=== PATIENT | male | born 1930 | race Caucasian/White ===

== ENCOUNTER 2017-07-03 12:36 | Inpatient (IN) ==
[2017-07-03] MEDS ORDERED: LORazepam 2 MG/1 ML VIAL ONE ×3 (12:49→20:22)
[2017-07-03] MEDS ORDERED: LORazepam 2 MG/1 ML VIAL IV STA ×2 (12:52→17:05)
[2017-07-03] MEDS ORDERED: LABETALOL 20 MG/4 ML SYRINGE IV STA (13:08)
[2017-07-03 13:09] LABS: Basophils % 0.3 % (0.0-0.8); Eosinophils % 0.2 % (0.00-10.9); Hematocrit 46.6 VOL% (42.0-52.0); Immature Granulocytes % 0.3 %; Immature Granulocytes Absolute 0.04 #; Lymphocytes # 2.7 10*3/uL (1.4-4.0); Lymphocytes % 21.2 % (21.2-54.2); Mean Corpuscular HGB Conc 34.3 GM/DL (32-36); Mean Corpuscular Hemoglobin 30 PG (27-34); Mean Corpuscular Volume 86.8 FL (87-102); Mean Platelet Volume 10.8 FL (9.6-12.0); Monocytes # 0.6 10*3/uL (0.11-0.8); Monocytes % 4.7 % (1.7-12.7); Neutrophils # 9.2 10*3/uL (1.4-7.4); Neutrophils % 73.3 % (38.7-73.9); Platelet Count 227 T/CUMM (130-400); Red Blood Count 5.37 MC/CUMM (3.8-5.5); Red Cell Distribution Width 13.5 % (9.3-17.3); White Blood Count 12.5 T/CUMM (4-12)
[2017-07-03 13:16] LABS: INR 1.1; PT Patient Result 11.8 SECS
[2017-07-03 13:36] LABS: ABG Base Excess 1.7 MMOL/L (-2.5-2.5); ABG HCO3 25.8 MMOL/L (20-26); ABG Oxygen Saturation 96.5 % (95-100); ABG PCO2 39.1 MM HG (35-48); ABG PH 7.438 (7.35-7.45); Allen Test Positive
[2017-07-03 13:40] LABS: Albumin 4.1 G/DL (3.4-5.0); Bilirubin,Total 1.4 MG/DL (0.2-1.0); Calcium 9.3 MG/DL (8.5-10.1); Magnesium 2.1 MG/DL (1.8-2.4); Osmolality,Calculated 275.8 MOS/KG (273-304); Potassium 3.5 MMOL/L (3.5-5.1); Thyroid Stimulating Hormone 3.08 uIU/ml (0.358-3.74); Total Protein 7.2 G/DL (6.4-8.3); Troponin I Only 0.028 NG/ML (0.00-0.045)
[2017-07-03] MEDS ORDERED: LABETALOL 20 MG/4 ML SYRINGE IV ONE (14:05)
[2017-07-03 14:13] LABS: Sedimentation Rate-Westergren 10 MM/HR (0-20)
[2017-07-03 14:30] LABS: INR 1.1; PT Patient Result 11.6 SECS
[2017-07-03] MEDS ORDERED: PIPERACILLIN/TAZOBACTAM 3,375 MG VIAL IV ONE (15:17)
[2017-07-03] MEDS ORDERED: SODIUM CHLORIDE 0.9% 100 ML IV ONE (15:18)
[2017-07-03] MEDS: PIPERACILLIN/TAZOBACTAM 3,375 MG in SODIUM CHLORIDE 0.9% 100 ML IV SCH ×2 (15:30→22:53)
[2017-07-03 16:29] LABS: Apearance,Urine CLOUDY (Clear); Bilirubin,Urine Negative (Negative); Blood, Urine Small mg/dL (Negative); Glucose,Urine (UA) Negative (Negative); Ketones,Urine Negative (Negative); Mucus,Urine Occasional /LPF (Occasional); Nitrite,Urine Negative (Negative); Protein,Urine 100 MG/DL; RBC,Urine 19 /HPF (0-4); Urine Color Yellow (Yellow); Urine Specific Gravity 1.015 (1.001-1.035); Urine Urobilinogen < 2.0 EU/DL (0.2-1.0); WBC,Urine 3 /HPF (0-6)
[2017-07-03] MEDS ORDERED: cefTRIAXone 1,000 MG in SYRINGE 1 EACH IV SCH (17:00)
[2017-07-03] MEDS ORDERED: ALBUTEROL 2.5 MG/3 ML NEB RESP TX SCH (17:00)
[2017-07-03] MEDS ORDERED: hydrALAZINE 20 MG/1 ML VIAL ONE (18:11)
[2017-07-03] MEDS: hydrALAZINE 20 MG/1 ML VIAL IV PRN (18:20)
[2017-07-03] MEDS: ALBUTEROL 2.5 MG/3 ML NEB RESP TX SCH (19:07)
[2017-07-03] MEDS: DEXT 5% NACL 0.45% KCL 20 MEQ 20 MEQ/1,000 ML BAG IV SCH (21:37)
[2017-07-04] MEDS ORDERED: LORazepam 2 MG/1 ML VIAL IV ONE ×2 (01:34→09:54)
[2017-07-04] MEDS ORDERED: LORazepam 2 MG/1 ML VIAL ONE (01:51)
[2017-07-04] MEDS: ALBUTEROL 2.5 MG/3 ML NEB RESP TX SCH ×4 (01:52→20:25)
[2017-07-04 04:55] LABS: Basophils % 0.3 % (0.0-0.8); Eosinophils # 0.1 10*3/uL (0.0-0.87); Eosinophils % 0.5 % (0.00-10.9); Hematocrit 44.2 VOL% (42.0-52.0); Hemoglobin 15.4 GM/DL (14.0-18.0); Immature Granulocytes % 0.4 %; Immature Granulocytes Absolute 0.05 #; Lymphocytes # 1.8 10*3/uL (1.4-4.0); Lymphocytes % 15.4 % (21.2-54.2); Mean Corpuscular HGB Conc 34.8 GM/DL (32-36); Mean Corpuscular Hemoglobin 30 PG (27-34); Mean Corpuscular Volume 85.7 FL (87-102); Monocytes # 0.9 10*3/uL (0.11-0.8); Monocytes % 7.7 % (1.7-12.7); Neutrophils % 75.7 % (38.7-73.9); Platelet Count 179 T/CUMM (130-400); Red Blood Count 5.16 MC/CUMM (3.8-5.5); Red Cell Distribution Width 13.5 % (9.3-17.3); White Blood Count 11.8 T/CUMM (4-12)
[2017-07-04 05:14] LABS: Lactic Acid 2.5 MMOL/L (0.4-2.0)
[2017-07-04 05:33] LABS: Albumin 3.6 G/DL (3.4-5.0); Bilirubin,Total 1.3 MG/DL (0.2-1.0); Calcium 8.9 MG/DL (8.5-10.1); Osmolality,Calculated 282.4 MOS/KG (273-304); Potassium 3.3 MMOL/L (3.5-5.1)
[2017-07-04 05:46] LABS: Risk Ratio 3.82; VLDL CHOLESTEROL 20.8 MG/DL
[2017-07-04] MEDS: DEXT 5% NACL 0.45% KCL 20 MEQ 20 MEQ/1,000 ML BAG IV SCH ×3 (05:48→22:59)
[2017-07-04 05:51] LABS: Vitamin B12 581 PG/ML (211-911)
[2017-07-04] MEDS: PIPERACILLIN/TAZOBACTAM 3,375 MG in SODIUM CHLORIDE 0.9% 100 ML IV SCH ×3 (06:02→22:19)
[2017-07-04] MEDS: hydrALAZINE 20 MG/1 ML VIAL IV PRN ×2 (11:37→20:06)
[2017-07-04] MEDS: HALOPERIDOL 5 MG/ML AMP IV PRN ×2 (16:05→23:45)
[2017-07-04] MEDS ORDERED: GLUCAGON 1 MG VIAL IM PRN (17:02)
[2017-07-04] MEDS ORDERED: DEXTROSE 50% 25 GM/50 ML VIAL IV PRN (17:02)
[2017-07-04] MEDS: INSULIN REGULAR 100 UNIT/ML SUBCUT SCH (18:49)
[2017-07-05] MEDS: ALBUTEROL 2.5 MG/3 ML NEB RESP TX SCH ×4 (01:30→18:50)
[2017-07-05] MEDS: INSULIN REGULAR 100 UNIT/ML SUBCUT SCH ×4 (02:28→18:47)
[2017-07-05 04:24] LABS: Magnesium 1.9 MG/DL (1.8-2.4); Prealbumin 19.8 MG/DL (20-40)
[2017-07-05] MEDS: PIPERACILLIN/TAZOBACTAM 3,375 MG in SODIUM CHLORIDE 0.9% 100 ML IV SCH ×3 (05:59→22:13)
[2017-07-05] MEDS: HALOPERIDOL 5 MG/ML AMP IV PRN ×2 (06:00→12:00)
[2017-07-05] MEDS: ASPIRIN CHEW 81 MG TABLET PO SCH (11:59)
[2017-07-05] MEDS: POTASSIUM CHLORIDE 20 MEQ/15 ML UDCUP PER TUBE PRN (12:02)
[2017-07-05] MEDS: hydrALAZINE 20 MG/1 ML VIAL IV PRN (12:37)
[2017-07-05] MEDS ORDERED: HALOPERIDOL 5 MG/ML AMP IM ONE (17:30)
[2017-07-05] MEDS ORDERED: LORazepam 2 MG/1 ML VIAL IM ONE (17:30)
[2017-07-05] MEDS: ATORVASTATIN 10 MG TABLET PO SCH (21:43)
[2017-07-05] MEDS: FOLIC ACID 1 MG TABLET PO SCH (21:43)
[2017-07-06] MEDS: ALBUTEROL 2.5 MG/3 ML NEB RESP TX SCH ×4 (01:00→19:01)
[2017-07-06] MEDS: INSULIN REGULAR 100 UNIT/ML SUBCUT SCH ×4 (02:32→18:32)
[2017-07-06] MEDS: HALOPERIDOL 5 MG/ML AMP IV PRN ×3 (05:55→17:13)
[2017-07-06] MEDS: PIPERACILLIN/TAZOBACTAM 3,375 MG in SODIUM CHLORIDE 0.9% 100 ML IV SCH ×3 (06:26→22:56)
[2017-07-06] MEDS: ASPIRIN CHEW 81 MG TABLET PO SCH (09:24)
[2017-07-06] MEDS ORDERED: BISACODYL 10 MG SUPP RECTAL PRN (09:40)
[2017-07-06] MEDS: amLODIPine 5 MG TABLET PO SCH (11:11)
[2017-07-06] MEDS: POLYETHYLENE GLYCOL POWDER 17 GM PACK PO SCH (11:11)
[2017-07-06] MEDS: hydrALAZINE 20 MG/1 ML VIAL IV PRN (16:16)
[2017-07-06] MEDS: ZIPRASIDONE 20 MG/1 ML VIAL IM PRN (18:30)
[2017-07-06] MEDS: QUEtiapine 25 MG TABLET PO PRN (21:22)
[2017-07-06] MEDS: ATORVASTATIN 10 MG TABLET PO SCH (21:22)
[2017-07-06] MEDS: FOLIC ACID 1 MG TABLET PO SCH (21:22)
[2017-07-07] MEDS: ALBUTEROL 2.5 MG/3 ML NEB RESP TX SCH ×4 (00:28→20:00)
[2017-07-07] MEDS: INSULIN REGULAR 100 UNIT/ML SUBCUT SCH ×5 (00:34→23:59)
[2017-07-07] MEDS: HALOPERIDOL 5 MG/ML AMP IV PRN ×3 (02:00→15:20)
[2017-07-07 04:52] LABS: Basophils % 0.3 % (0.0-0.8); Eosinophils # 0.3 10*3/uL (0.0-0.87); Eosinophils % 2.7 % (0.00-10.9); Hematocrit 46.6 VOL% (42.0-52.0); Hemoglobin 16.7 GM/DL (14.0-18.0); Immature Granulocytes % 0.5 %; Immature Granulocytes Absolute 0.06 #; Lymphocytes # 1.4 10*3/uL (1.4-4.0); Lymphocytes % 12.4 % (21.2-54.2); Mean Corpuscular HGB Conc 35.8 GM/DL (32-36); Mean Corpuscular Hemoglobin 30 PG (27-34); Mean Corpuscular Volume 84.1 FL (87-102); Monocytes % 8.9 % (1.7-12.7); Neutrophils # 8.6 10*3/uL (1.4-7.4); Neutrophils % 75.2 % (38.7-73.9); Platelet Count 180 T/CUMM (130-400); Red Blood Count 5.54 MC/CUMM (3.8-5.5); Red Cell Distribution Width 13.9 % (9.3-17.3); White Blood Count 11.5 T/CUMM (4-12)
[2017-07-07 05:27] LABS: Calcium 8.5 MG/DL (8.5-10.1); Magnesium 2.2 MG/DL (1.8-2.4); Osmolality,Calculated 286.1 MOS/KG (273-304); Potassium 3.4 MMOL/L (3.5-5.1)
[2017-07-07 06:00] LABS: Albumin 3.3 G/DL (3.4-5.0); Calcium 8.9 MG/DL (8.5-10.1); Osmolality,Calculated 293.6 MOS/KG (273-304); Potassium 3.5 MMOL/L (3.5-5.1)
[2017-07-07] MEDS: PIPERACILLIN/TAZOBACTAM 3,375 MG in SODIUM CHLORIDE 0.9% 100 ML IV SCH ×3 (06:23→23:02)
[2017-07-07] MEDS: POTASSIUM CHLORIDE 20 MEQ/15 ML UDCUP PER TUBE PRN ×2 (06:23→08:58)
[2017-07-07] MEDS: ASPIRIN CHEW 81 MG TABLET PO SCH (08:57)
[2017-07-07] MEDS: QUEtiapine 25 MG TABLET PO PRN ×2 (08:57→20:20)
[2017-07-07] MEDS: POLYETHYLENE GLYCOL POWDER 17 GM PACK PO SCH (08:57)
[2017-07-07] MEDS: amLODIPine 5 MG TABLET PO SCH (08:58)
[2017-07-07] MEDS ORDERED: ZINC OXIDE PASTE 113 GM TUBE TOP PRN (10:25)
[2017-07-07] MEDS: amLODIPine 10 MG TABLET PO SCH (11:18)
[2017-07-07] MEDS: ZIPRASIDONE 20 MG/1 ML VIAL IM PRN (15:37)
[2017-07-07] MEDS: hydrALAZINE 20 MG/1 ML VIAL IV PRN ×2 (17:15→22:15)
[2017-07-07] MEDS: ATORVASTATIN 10 MG TABLET PO SCH (20:20)
[2017-07-07] MEDS: FOLIC ACID 1 MG TABLET PO SCH (20:20)
[2017-07-08] MEDS: hydrALAZINE 20 MG/1 ML VIAL IV PRN (00:08)
[2017-07-08] MEDS: ALBUTEROL 2.5 MG/3 ML NEB RESP TX SCH ×4 (00:35→19:33)
[2017-07-08] MEDS: DILTIAZEM INJ 100 MG in SODIUM CHLORIDE 0.9% 100 ML IV SCH ×2 (02:13→14:43)
[2017-07-08] MEDS: INSULIN REGULAR 100 UNIT/ML SUBCUT SCH ×3 (06:08→19:07)
[2017-07-08] MEDS: PIPERACILLIN/TAZOBACTAM 3,375 MG in SODIUM CHLORIDE 0.9% 100 ML IV SCH ×3 (06:08→23:18)
[2017-07-08] MEDS: POTASSIUM CHLORIDE 20 MEQ/15 ML UDCUP PER TUBE PRN (10:08)
[2017-07-08] MEDS: ASPIRIN CHEW 81 MG TABLET PO SCH (10:09)
[2017-07-08] MEDS: POLYETHYLENE GLYCOL POWDER 17 GM PACK PO SCH (10:10)
[2017-07-08] MEDS: amLODIPine 10 MG TABLET PO SCH (10:10)
[2017-07-08] MEDS: HALOPERIDOL 5 MG/ML AMP IV PRN (14:40)
[2017-07-08] MEDS: FOLIC ACID 1 MG TABLET PO SCH (20:21)
[2017-07-08] MEDS: ATORVASTATIN 10 MG TABLET PO SCH (20:21)
[2017-07-08] MEDS: QUEtiapine 25 MG TABLET PO PRN (20:21)
[2017-07-08] MEDS: ZIPRASIDONE 20 MG/1 ML VIAL IM PRN (23:10)
[2017-07-09] MEDS: ALBUTEROL 2.5 MG/3 ML NEB RESP TX SCH ×4 (01:41→20:00)
[2017-07-09] MEDS: DILTIAZEM INJ 100 MG in SODIUM CHLORIDE 0.9% 100 ML IV SCH ×2 (03:20→17:12)
[2017-07-09] MEDS: INSULIN REGULAR 100 UNIT/ML SUBCUT SCH ×4 (06:04→19:11)
[2017-07-09] MEDS: PIPERACILLIN/TAZOBACTAM 3,375 MG in SODIUM CHLORIDE 0.9% 100 ML IV SCH ×3 (06:10→23:15)
[2017-07-09] MEDS: ASPIRIN CHEW 81 MG TABLET PO SCH (08:18)
[2017-07-09] MEDS: QUEtiapine 25 MG TABLET PO PRN (08:18)
[2017-07-09] MEDS: amLODIPine 10 MG TABLET PO SCH (08:18)
[2017-07-09] MEDS: POLYETHYLENE GLYCOL POWDER 17 GM PACK PO SCH (08:18)
[2017-07-09] MEDS: POTASSIUM CHLORIDE 20 MEQ/15 ML UDCUP PER TUBE PRN (08:19)
[2017-07-09] MEDS: ZIPRASIDONE 20 MG/1 ML VIAL IM PRN (11:17)
[2017-07-09] MEDS: ENOXAPARIN 40 MG/0.4 ML SYRINGE SUBCUT SCH (17:11)
[2017-07-09] MEDS: FOLIC ACID 1 MG TABLET PO SCH (22:07)
[2017-07-09] MEDS: CARVEDILOL 6.25 MG TABLET NG SCH (22:07)
[2017-07-09] MEDS: ATORVASTATIN 10 MG TABLET PO SCH (22:07)
[2017-07-10] MEDS: ALBUTEROL 2.5 MG/3 ML NEB RESP TX SCH ×4 (00:33→19:11)
[2017-07-10] MEDS: INSULIN REGULAR 100 UNIT/ML SUBCUT SCH ×4 (01:23→17:52)
[2017-07-10 05:32] LABS: Basophils # 0.1 10*3/uL (0.0-0.2); Basophils % 0.6 % (0.0-0.8); Eosinophils # 0.4 10*3/uL (0.0-0.87); Eosinophils % 2.8 % (0.00-10.9); Hematocrit 44.1 VOL% (42.0-52.0); Hemoglobin 14.9 GM/DL (14.0-18.0); Immature Granulocytes % 0.9 %; Immature Granulocytes Absolute 0.11 #; Lymphocytes # 1.4 10*3/uL (1.4-4.0); Lymphocytes % 11.1 % (21.2-54.2); Mean Corpuscular HGB Conc 33.8 GM/DL (32-36); Mean Corpuscular Hemoglobin 30 PG (27-34); Mean Corpuscular Volume 87.5 FL (87-102); Mean Platelet Volume 11.5 FL (9.6-12.0); Monocytes # 1.1 10*3/uL (0.11-0.8); Monocytes % 9.1 % (1.7-12.7); Neutrophils # 9.4 10*3/uL (1.4-7.4); Neutrophils % 75.5 % (38.7-73.9); Platelet Count 232 T/CUMM (130-400); Red Blood Count 5.04 MC/CUMM (3.8-5.5); Red Cell Distribution Width 14.4 % (9.3-17.3); White Blood Count 12.5 T/CUMM (4-12)
[2017-07-10 05:50] LABS: Calcium 9.1 MG/DL (8.5-10.1); Osmolality,Calculated 309.9 MOS/KG (273-304); Potassium 3.7 MMOL/L (3.5-5.1)
[2017-07-10] MEDS: PIPERACILLIN/TAZOBACTAM 3,375 MG in SODIUM CHLORIDE 0.9% 100 ML IV SCH ×3 (07:14→22:21)
[2017-07-10] MEDS: amLODIPine 10 MG TABLET PO SCH (09:46)
[2017-07-10] MEDS: MEMANTINE 5 MG TABLET PO SCH ×2 (09:46→22:01)
[2017-07-10] MEDS: QUEtiapine 25 MG TABLET PO SCH ×2 (09:47→22:02)
[2017-07-10] MEDS: DILTIAZEM INJ 100 MG in SODIUM CHLORIDE 0.9% 100 ML IV SCH (09:47)
[2017-07-10] MEDS: ASPIRIN CHEW 81 MG TABLET PO SCH (09:47)
[2017-07-10] MEDS: CARVEDILOL 6.25 MG TABLET NG SCH ×2 (09:47→22:02)
[2017-07-10] MEDS: POLYETHYLENE GLYCOL POWDER 17 GM PACK PO SCH (09:47)
[2017-07-10] MEDS: ENOXAPARIN 40 MG/0.4 ML SYRINGE SUBCUT SCH (16:13)
[2017-07-10] MEDS: cloNIDine 0.1 MG TABLET PO PRN (22:01)
[2017-07-10] MEDS: FOLIC ACID 1 MG TABLET PO SCH (22:01)
[2017-07-10] MEDS: ATORVASTATIN 10 MG TABLET PO SCH (22:02)
[2017-07-11] MEDS: ALBUTEROL 2.5 MG/3 ML NEB RESP TX SCH ×4 (00:14→20:21)
[2017-07-11] MEDS: DILTIAZEM INJ 100 MG in SODIUM CHLORIDE 0.9% 100 ML IV SCH (04:08)
[2017-07-11] MEDS: INSULIN REGULAR 100 UNIT/ML SUBCUT SCH ×4 (04:08→18:00)
[2017-07-11] MEDS: cloNIDine 0.1 MG TABLET PO PRN (05:10)
[2017-07-11 05:55] LABS: Calcium 8.8 MG/DL (8.5-10.1); Potassium 3.7 MMOL/L (3.5-5.1)
[2017-07-11] MEDS: PIPERACILLIN/TAZOBACTAM 3,375 MG in SODIUM CHLORIDE 0.9% 100 ML IV SCH ×3 (06:27→22:42)
[2017-07-11] MEDS: amLODIPine 10 MG TABLET PO SCH (09:50)
[2017-07-11] MEDS: POLYETHYLENE GLYCOL POWDER 17 GM PACK PO SCH (09:50)
[2017-07-11] MEDS: CARVEDILOL 6.25 MG TABLET NG SCH (09:51)
[2017-07-11] MEDS: MEMANTINE 5 MG TABLET PO SCH (09:51)
[2017-07-11] MEDS: QUEtiapine 25 MG TABLET PO SCH (09:51)
[2017-07-11] MEDS: ASPIRIN CHEW 81 MG TABLET PO SCH (09:52)
[2017-07-11] MEDS: ENOXAPARIN 40 MG/0.4 ML SYRINGE SUBCUT SCH (17:38)
[2017-07-11] MEDS ORDERED: ZIPRASIDONE 20 MG/1 ML VIAL IM ONE (22:30)
[2017-07-12] MEDS: INSULIN REGULAR 100 UNIT/ML SUBCUT SCH ×4 (00:15→17:33)
[2017-07-12] MEDS: hydrALAZINE 25 MG TABLET PO SCH ×3 (00:15→20:43)
[2017-07-12] MEDS: CARVEDILOL 12.5 MG TABLET PO SCH ×2 (00:15→08:35)
[2017-07-12] MEDS: MEMANTINE 5 MG TABLET PO SCH ×3 (00:16→20:43)
[2017-07-12] MEDS: FOLIC ACID 1 MG TABLET PO SCH ×2 (00:16→20:43)
[2017-07-12] MEDS: ATORVASTATIN 10 MG TABLET PO SCH ×2 (00:16→20:43)
[2017-07-12] MEDS: ALBUTEROL 2.5 MG/3 ML NEB RESP TX SCH ×4 (00:47→20:26)
[2017-07-12] MEDS: PIPERACILLIN/TAZOBACTAM 3,375 MG in SODIUM CHLORIDE 0.9% 100 ML IV SCH ×3 (06:34→23:20)
[2017-07-12] MEDS: DILTIAZEM INJ 100 MG in SODIUM CHLORIDE 0.9% 100 ML IV SCH (07:27)
[2017-07-12] MEDS: amLODIPine 10 MG TABLET PO SCH (08:34)
[2017-07-12] MEDS: ASPIRIN CHEW 81 MG TABLET PO SCH (08:35)
[2017-07-12] MEDS: POLYETHYLENE GLYCOL POWDER 17 GM PACK PO SCH (08:35)
[2017-07-12] MEDS: ENOXAPARIN 40 MG/0.4 ML SYRINGE SUBCUT SCH (17:33)
[2017-07-12] MEDS: CARVEDILOL 25 MG TABLET PO SCH (17:33)
[2017-07-13] MEDS: ZIPRASIDONE 20 MG/1 ML VIAL IM PRN ×2 (00:59→22:45)
[2017-07-13] MEDS: INSULIN REGULAR 100 UNIT/ML SUBCUT SCH ×4 (01:06→17:48)
[2017-07-13] MEDS: ALBUTEROL 2.5 MG/3 ML NEB RESP TX SCH ×4 (01:43→21:20)
[2017-07-13] MEDS: DILTIAZEM INJ 100 MG in SODIUM CHLORIDE 0.9% 100 ML IV SCH (06:24)
[2017-07-13] MEDS: PIPERACILLIN/TAZOBACTAM 3,375 MG in SODIUM CHLORIDE 0.9% 100 ML IV SCH ×3 (06:49→23:46)
[2017-07-13] MEDS: POLYETHYLENE GLYCOL POWDER 17 GM PACK PO SCH (10:10)
[2017-07-13] MEDS: amLODIPine 10 MG TABLET PO SCH (10:10)
[2017-07-13] MEDS: hydrALAZINE 25 MG TABLET PO SCH ×2 (10:10→21:27)
[2017-07-13] MEDS: CARVEDILOL 25 MG TABLET PO SCH ×2 (10:10→16:48)
[2017-07-13] MEDS: MEMANTINE 5 MG TABLET PO SCH ×2 (10:10→21:27)
[2017-07-13] MEDS: ASPIRIN CHEW 81 MG TABLET PO SCH (10:11)
[2017-07-13] MEDS: ENOXAPARIN 40 MG/0.4 ML SYRINGE SUBCUT SCH (16:52)
[2017-07-13] MEDS ORDERED: cloNIDine 0.3 MG/24 HR PATCH TRANSDERM SCH (17:00)
[2017-07-13] MEDS ORDERED: DEXTROSE 5% NACL 0.45% 1,000 ML IV SCH (17:00)
[2017-07-13] MEDS: FOLIC ACID 1 MG TABLET PO SCH (21:27)
[2017-07-13] MEDS: ATORVASTATIN 10 MG TABLET PO SCH (21:27)
[2017-07-14] MEDS: INSULIN REGULAR 100 UNIT/ML SUBCUT SCH ×4 (01:22→19:18)
[2017-07-14] MEDS: ALBUTEROL 2.5 MG/3 ML NEB RESP TX SCH ×4 (01:42→20:00)
[2017-07-14 06:30] LABS: Calcium 8.7 MG/DL (8.5-10.1); Magnesium 2.7 MG/DL (1.8-2.4); Osmolality,Calculated 326.7 MOS/KG (273-304); Potassium 3.7 MMOL/L (3.5-5.1); Prealbumin 12.9 MG/DL (20-40)
[2017-07-14] MEDS: PIPERACILLIN/TAZOBACTAM 3,375 MG in SODIUM CHLORIDE 0.9% 100 ML IV SCH ×3 (06:45→23:35)
[2017-07-14] MEDS: DILTIAZEM INJ 100 MG in SODIUM CHLORIDE 0.9% 100 ML IV SCH (06:46)
[2017-07-14] MEDS: ZIPRASIDONE 20 MG/1 ML VIAL IM PRN ×2 (08:17→21:23)
[2017-07-14] MEDS: hydrALAZINE 25 MG TABLET PO SCH ×2 (12:16→21:24)
[2017-07-14] MEDS: CARVEDILOL 25 MG TABLET PO SCH ×2 (12:16→18:38)
[2017-07-14] MEDS: ASPIRIN CHEW 81 MG TABLET PO SCH (12:16)
[2017-07-14] MEDS: MEMANTINE 5 MG TABLET PO SCH ×2 (12:17→21:24)
[2017-07-14] MEDS: POLYETHYLENE GLYCOL POWDER 17 GM PACK PO SCH (12:17)
[2017-07-14] MEDS: amLODIPine 10 MG TABLET PO SCH (12:17)
[2017-07-14] MEDS: DEXTROSE 5% KCL 20 MEQ 20 MEQ/1,000 ML BAG IV SCH (14:09)
[2017-07-14] MEDS: ENOXAPARIN 40 MG/0.4 ML SYRINGE SUBCUT SCH (18:37)
[2017-07-14] MEDS: FOLIC ACID 1 MG TABLET PO SCH (21:24)
[2017-07-14] MEDS: ATORVASTATIN 10 MG TABLET PO SCH (21:24)
[2017-07-15] MEDS: ALBUTEROL 2.5 MG/3 ML NEB RESP TX SCH ×4 (00:42→19:48)
[2017-07-15] MEDS: INSULIN REGULAR 100 UNIT/ML SUBCUT SCH ×4 (02:47→18:51)
[2017-07-15] MEDS: DILTIAZEM INJ 100 MG in SODIUM CHLORIDE 0.9% 100 ML IV SCH (02:48)
[2017-07-15 05:38] LABS: Red Blood Count 4.64 MC/CUMM (3.8-5.5); White Blood Count 13.2 T/CUMM (4-12)
[2017-07-15 05:39] LABS: Basophils # 0.1 10*3/uL (0.0-0.2); Basophils % 0.5 % (0.0-0.8); Eosinophils # 0.4 10*3/uL (0.0-0.87); Eosinophils % 3.3 % (0.00-10.9); Hematocrit 41.8 VOL% (42.0-52.0); Hemoglobin 13.6 GM/DL (14.0-18.0); Immature Granulocytes % 1.1 %; Immature Granulocytes Absolute 0.14 #; Lymphocytes # 2.1 10*3/uL (1.4-4.0); Lymphocytes % 16.1 % (21.2-54.2); Mean Corpuscular HGB Conc 32.5 GM/DL (32-36); Mean Corpuscular Hemoglobin 29 PG (27-34); Mean Corpuscular Volume 90.1 FL (87-102); Monocytes % 7.5 % (1.7-12.7); Neutrophils # 9.4 10*3/uL (1.4-7.4); Neutrophils % 71.5 % (38.7-73.9); Platelet Count 298 T/CUMM (130-400); Red Cell Distribution Width 13.5 % (9.3-17.3)
[2017-07-15] MEDS: DEXTROSE 5% KCL 20 MEQ 20 MEQ/1,000 ML BAG IV SCH ×3 (05:46→16:08)
[2017-07-15] MEDS: PIPERACILLIN/TAZOBACTAM 3,375 MG in SODIUM CHLORIDE 0.9% 100 ML IV SCH ×3 (07:27→23:47)
[2017-07-15] MEDS: ZIPRASIDONE 20 MG/1 ML VIAL IM PRN (11:31)
[2017-07-15] MEDS: ASPIRIN CHEW 81 MG TABLET PO SCH (12:16)
[2017-07-15] MEDS: CARVEDILOL 25 MG TABLET PO SCH ×2 (12:16→18:49)
[2017-07-15] MEDS: hydrALAZINE 25 MG TABLET PO SCH ×2 (12:16→23:00)
[2017-07-15] MEDS: amLODIPine 10 MG TABLET PO SCH (12:17)
[2017-07-15] MEDS: MEMANTINE 5 MG TABLET PO SCH ×2 (12:17→23:01)
[2017-07-15] MEDS: POLYETHYLENE GLYCOL POWDER 17 GM PACK PO SCH (12:17)
[2017-07-15] MEDS: ENOXAPARIN 40 MG/0.4 ML SYRINGE SUBCUT SCH (18:49)
[2017-07-15] MEDS: FOLIC ACID 1 MG TABLET PO SCH (23:00)
[2017-07-15] MEDS: ATORVASTATIN 10 MG TABLET PO SCH (23:00)
[2017-07-16] MEDS: INSULIN REGULAR 100 UNIT/ML SUBCUT SCH ×4 (01:28→18:22)
[2017-07-16] MEDS: DILTIAZEM INJ 100 MG in SODIUM CHLORIDE 0.9% 100 ML IV SCH (03:10)
[2017-07-16] MEDS: DEXTROSE 5% KCL 20 MEQ 20 MEQ/1,000 ML BAG IV SCH ×4 (03:50→21:32)
[2017-07-16] MEDS: PIPERACILLIN/TAZOBACTAM 3,375 MG in SODIUM CHLORIDE 0.9% 100 ML IV SCH (06:30)
[2017-07-16 08:22] LABS: Calcium 8.8 MG/DL (8.5-10.1); Osmolality,Calculated 322.7 MOS/KG (273-304); Potassium 3.9 MMOL/L (3.5-5.1)
[2017-07-16] MEDS: hydrALAZINE 25 MG TABLET PO SCH ×2 (09:00→21:47)
[2017-07-16] MEDS: MEMANTINE 5 MG TABLET PO SCH ×2 (09:00→21:47)
[2017-07-16] MEDS ORDERED: DEXTROSE 5% KCL 20 MEQ 20 MEQ/1,000 ML BAG IV SCH (09:00)
[2017-07-16] MEDS: CARVEDILOL 25 MG TABLET PO SCH ×2 (09:00→17:52)
[2017-07-16] MEDS: amLODIPine 10 MG TABLET PO SCH (09:00)
[2017-07-16] MEDS: POLYETHYLENE GLYCOL POWDER 17 GM PACK PO SCH (09:00)
[2017-07-16] MEDS: ALBUTEROL 2.5 MG/3 ML NEB RESP TX SCH ×4 (09:11→19:42)
[2017-07-16] MEDS: ZIPRASIDONE 20 MG/1 ML VIAL IM PRN ×2 (11:03→23:04)
[2017-07-16] MEDS ORDERED: TUBERCULIN SKIN TEST 0.1 ML SYRINGE INTRADERM ONE (14:59)
[2017-07-16] MEDS: FOLIC ACID 1 MG TABLET PO SCH (21:47)
[2017-07-16] MEDS: ATORVASTATIN 10 MG TABLET PO SCH (21:47)
[2017-07-17] MEDS: ALBUTEROL 2.5 MG/3 ML NEB RESP TX SCH ×4 (00:09→20:00)
[2017-07-17] MEDS: INSULIN REGULAR 100 UNIT/ML SUBCUT SCH ×4 (00:28→18:31)
[2017-07-17] MEDS: DILTIAZEM INJ 100 MG in SODIUM CHLORIDE 0.9% 100 ML IV SCH (02:29)
[2017-07-17] MEDS: DEXTROSE 5% KCL 20 MEQ 20 MEQ/1,000 ML BAG IV SCH ×3 (04:56→21:59)
[2017-07-17 06:09] LABS: Calcium 8.6 MG/DL (8.5-10.1); Calcium 8.9 MG/DL (8.5-10.1); Magnesium 2.6 MG/DL (1.8-2.4); Osmolality,Calculated 307.7 MOS/KG (273-304); Osmolality,Calculated 308.7 MOS/KG (273-304); Potassium 3.9 MMOL/L (3.5-5.1)
[2017-07-17] MEDS ORDERED: DEXTROSE 5% 500 ML IV ONE (07:30)
[2017-07-17] MEDS: amLODIPine 10 MG TABLET PO SCH (08:27)
[2017-07-17] MEDS: MEMANTINE 5 MG TABLET PO SCH ×2 (08:27→21:59)
[2017-07-17] MEDS: CARVEDILOL 25 MG TABLET PO SCH ×2 (08:27→17:15)
[2017-07-17] MEDS: POLYETHYLENE GLYCOL POWDER 17 GM PACK PO SCH (08:27)
[2017-07-17] MEDS: hydrALAZINE 25 MG TABLET PO SCH ×2 (08:27→21:59)
[2017-07-17] MEDS ORDERED: ceFAZolin 1,000 MG in SYRINGE 1 EACH IV ONE (12:21)
[2017-07-17] MEDS ORDERED: ceFAZolin 1,000 MG VIAL ONE (12:22)
[2017-07-17] MEDS: FOLIC ACID 1 MG TABLET PO SCH (21:59)
[2017-07-17] MEDS: ATORVASTATIN 10 MG TABLET PO SCH (21:59)
[2017-07-18] MEDS: ALBUTEROL 2.5 MG/3 ML NEB RESP TX SCH ×4 (00:15→20:40)
[2017-07-18] MEDS: INSULIN REGULAR 100 UNIT/ML SUBCUT SCH ×4 (00:55→18:05)
[2017-07-18] MEDS: DEXTROSE 5% KCL 20 MEQ 20 MEQ/1,000 ML BAG IV SCH ×2 (02:23→09:47)
[2017-07-18] MEDS: DILTIAZEM INJ 100 MG in SODIUM CHLORIDE 0.9% 100 ML IV SCH (02:24)
[2017-07-18 05:32] LABS: Basophils # 0.1 10*3/uL (0.0-0.2); Basophils % 0.4 % (0.0-0.8); Eosinophils # 0.4 10*3/uL (0.0-0.87); Eosinophils % 3.7 % (0.00-10.9); Hematocrit 37.4 VOL% (42.0-52.0); Hemoglobin 12.9 GM/DL (14.0-18.0); Immature Granulocytes Absolute 0.22 #; Lymphocytes # 1.8 10*3/uL (1.4-4.0); Mean Corpuscular HGB Conc 34.5 GM/DL (32-36); Mean Corpuscular Hemoglobin 30 PG (27-34); Mean Corpuscular Volume 85.8 FL (87-102); Mean Platelet Volume 11.8 FL (9.6-12.0); Monocytes # 0.7 10*3/uL (0.11-0.8); Monocytes % 6.1 % (1.7-12.7); Neutrophils # 8.1 10*3/uL (1.4-7.4); Neutrophils % 71.8 % (38.7-73.9); Platelet Count 284 T/CUMM (130-400); Red Blood Count 4.36 MC/CUMM (3.8-5.5); Red Cell Distribution Width 13.2 % (9.3-17.3); White Blood Count 11.3 T/CUMM (4-12)
[2017-07-18 05:59] LABS: Calcium 8.3 MG/DL (8.5-10.1)
[2017-07-18 06:07] LABS: Calcium 8.3 MG/DL (8.5-10.1); Magnesium 2.2 MG/DL (1.8-2.4); Osmolality,Calculated 289.8 MOS/KG (273-304); Potassium 4.1 MMOL/L (3.5-5.1)
[2017-07-18] MEDS: MEMANTINE 5 MG TABLET PO SCH ×2 (09:48→21:39)
[2017-07-18] MEDS: POLYETHYLENE GLYCOL POWDER 17 GM PACK PO SCH (09:48)
[2017-07-18] MEDS: CARVEDILOL 25 MG TABLET PO SCH ×2 (09:48→21:38)
[2017-07-18] MEDS: hydrALAZINE 25 MG TABLET PO SCH ×2 (09:48→21:39)
[2017-07-18] MEDS: amLODIPine 10 MG TABLET PO SCH (09:48)
[2017-07-18] MEDS: ATORVASTATIN 10 MG TABLET PO SCH (21:38)
[2017-07-18] MEDS: FOLIC ACID 1 MG TABLET PO SCH (21:39)
[2017-07-19] MEDS: INSULIN REGULAR 100 UNIT/ML SUBCUT SCH ×4 (01:28→19:13)
[2017-07-19] MEDS: ALBUTEROL 2.5 MG/3 ML NEB RESP TX SCH ×4 (02:06→19:24)
[2017-07-19] MEDS: DILTIAZEM INJ 100 MG in SODIUM CHLORIDE 0.9% 100 ML IV SCH (05:18)
[2017-07-19] MEDS: hydrALAZINE 25 MG TABLET PO SCH (09:36)
[2017-07-19] MEDS: CARVEDILOL 25 MG TABLET PO SCH (09:36)
[2017-07-19] MEDS: amLODIPine 10 MG TABLET PO SCH (09:36)
[2017-07-19] MEDS: MEMANTINE 5 MG TABLET PO SCH (09:36)
[2017-07-19] MEDS: ASPIRIN CHEW 81 MG TABLET PO SCH (09:36)
[2017-07-19] MEDS: POLYETHYLENE GLYCOL POWDER 17 GM PACK PO SCH (10:55)
[2017-07-19] MEDS: ZIPRASIDONE 20 MG/1 ML VIAL IM PRN (18:22)
[2017-07-19] MEDS: ENOXAPARIN 40 MG/0.4 ML SYRINGE SUBCUT SCH (18:37)
[2017-07-19] MEDS ORDERED: QUEtiapine 25 MG TABLET PO SCH (21:00)
[2017-07-19] MEDS ORDERED: SUCCINYLCHOLINE 200 MG/10 ML VIAL ONE (21:39)
[2017-07-19] MEDS ORDERED: ETOMIDATE 20 MG/10 ML VIAL IV ONE ×2 (21:39→21:49)
[2017-07-19] MEDS ORDERED: SUCCINYLCHOLINE 200 MG/10 ML VIAL IV ONE (21:49)
[2017-07-19] MEDS ORDERED: PROPOFOL 1,000 MG/100 ML BOTTLE IV ONE (21:51)
[2017-07-19] MEDS ORDERED: fentaNYL 100 MCG/2 ML VIAL IV PRN (22:42)
[2017-07-19] MEDS ORDERED: OCTREOTIDE 100 MCG/ML SYRINGE IV ONE (22:42)
[2017-07-19] MEDS ORDERED: ALBUTEROL/IPRATROPIUM 3 ML NEB RESP TX PRN (22:45)
[2017-07-19] MEDS ORDERED: SODIUM CHLORIDE 0.9% 1,000 ML IV PRN (22:49)
[2017-07-19] MEDS ORDERED: FUROSEMIDE 20 MG/2 ML VIAL IV PRN (22:49)
[2017-07-19] MEDS ORDERED: PHYTONADIONE 10 MG/1 ML AMP IV ONE (22:51)
[2017-07-19] MEDS ORDERED: SODIUM CHLORIDE 0.9% 1,000 ML IV ONE (22:58)
[2017-07-19 23:06] LABS: Basophils % 0.3 % (0.0-0.8); Eosinophils # 0.4 10*3/uL (0.0-0.87); Eosinophils % 2.7 % (0.00-10.9); Hematocrit 37.3 VOL% (42.0-52.0); Hemoglobin 12.5 GM/DL (14.0-18.0); Immature Granulocytes % 2.3 %; Immature Granulocytes Absolute 0.35 #; Lymphocytes % 6.3 % (21.2-54.2); Mean Corpuscular HGB Conc 33.5 GM/DL (32-36); Mean Corpuscular Hemoglobin 30 PG (27-34); Mean Corpuscular Volume 88.2 FL (87-102); Monocytes # 0.9 10*3/uL (0.11-0.8); Monocytes % 5.6 % (1.7-12.7); Neutrophils # 12.7 10*3/uL (1.4-7.4); Neutrophils % 82.8 % (38.7-73.9); Platelet Count 358 T/CUMM (130-400); Red Blood Count 4.23 MC/CUMM (3.8-5.5); Red Cell Distribution Width 13.3 % (9.3-17.3); White Blood Count 15.4 T/CUMM (4-12)
[2017-07-19 23:14] LABS: INR 1.2; PT Patient Result 12.9 SECS; Partial Thromboplastin Time 25.2 SECS (0-40)
[2017-07-19] MEDS: PROPOFOL 1,000 MG/100 ML BOTTLE IV SCH (23:14)
[2017-07-19] MEDS: PHENYLEPHRINE DRIP 40 MG/250 ML PREMIX IV SCH (23:14)
[2017-07-19] MEDS: PANTOPRAZOLE 40 MG VIAL IV SCH (23:17)
[2017-07-19 23:25] LABS: Calcium 8.2 MG/DL (8.5-10.1); Osmolality,Calculated 293.8 MOS/KG (273-304); Potassium 4.3 MMOL/L (3.5-5.1)
[2017-07-19] MEDS: OCTREOTIDE 500 MCG in SODIUM CHLORIDE 0.9% 100 ML IV SCH (23:39)
[2017-07-19] MEDS: fentaNYL INJ 1,250 MCG in SODIUM CHLORIDE 0.9% 225 ML IV SCH (23:40)
[2017-07-19] MEDS: VASOPRESSIN 100 UNITS in SODIUM CHLORIDE 0.9% 95 ML IV SCH (23:40)
[2017-07-20 00:36] LABS: ABG Base Excess -3.1 MMOL/L (-2.5-2.5); ABG HCO3 20.7 MMOL/L (20-26); ABG Oxygen Saturation 98.9 % (95-100); ABG PCO2 33.4 MM HG (35-48); ABG PO2 172.5 MM HG (80-95); ABG TCO2 21.7 MMOL/L (23-27)
[2017-07-20] MEDS: INSULIN REGULAR 100 UNIT/ML SUBCUT SCH ×4 (00:38→17:08)
[2017-07-20] MEDS: ALBUTEROL/IPRATROPIUM 3 ML NEB RESP TX SCH ×4 (00:43→19:20)
[2017-07-20 04:15] LABS: ABG Base Excess -2.4 MMOL/L (-2.5-2.5); ABG HCO3 21.4 MMOL/L (20-26); ABG Oxygen Saturation 98.9 % (95-100); ABG PCO2 33.8 MM HG (35-48); ABG PH 7.419 (7.35-7.45); ABG PO2 188.7 MM HG (80-95); ABG TCO2 22.4 MMOL/L (23-27)
[2017-07-20] MEDS ORDERED: LIDOCAINE 1% 20 ML VIAL MISC INJ ONE (05:31)
[2017-07-20] MEDS ORDERED: LIDOCAINE 2% 20 ML VIAL RESP TX ONE (05:31)
[2017-07-20 06:46] LABS: ABG Base Excess -1.8 MMOL/L (-2.5-2.5); ABG HCO3 22.1 MMOL/L (20-26); ABG Oxygen Saturation 95.2 % (95-100); ABG PCO2 34.9 MM HG (35-48); ABG PH 7.419 (7.35-7.45); ABG PO2 78.1 MM HG (80-95); ABG TCO2 23.1 MMOL/L (23-27); Allen Test Positive; Pt O2 Delivery Device Ventilator
[2017-07-20 06:51] LABS: Hematocrit 37.8 VOL% (42.0-52.0); Hemoglobin 12.7 GM/DL (14.0-18.0)
[2017-07-20 07:18] LABS: INR 1.1; PT Patient Result 11.4 SECS
[2017-07-20] MEDS: OCTREOTIDE 500 MCG in SODIUM CHLORIDE 0.9% 100 ML IV SCH (09:19)
[2017-07-20] MEDS: PANTOPRAZOLE 40 MG VIAL IV SCH ×2 (10:07→21:04)
[2017-07-20] MEDS ORDERED: LEVOFLOXACIN INJ 500 MG in PREMIX 1 EACH IV ONE (11:00)
[2017-07-20 13:47] LABS: Basophils # 0.1 10*3/uL (0.0-0.2); Basophils % 0.3 % (0.0-0.8); Eosinophils # 0.3 10*3/uL (0.0-0.87); Eosinophils % 1.5 % (0.00-10.9); Hematocrit 38.7 VOL% (42.0-52.0); Hemoglobin 12.9 GM/DL (14.0-18.0); Immature Granulocytes % 1.7 %; Immature Granulocytes Absolute 0.36 #; Lymphocytes # 1.8 10*3/uL (1.4-4.0); Lymphocytes % 8.8 % (21.2-54.2); Mean Corpuscular HGB Conc 33.3 GM/DL (32-36); Mean Corpuscular Hemoglobin 30 PG (27-34); Mean Corpuscular Volume 89.2 FL (87-102); Mean Platelet Volume 12.6 FL (9.6-12.0); Monocytes # 1.1 10*3/uL (0.11-0.8); Monocytes % 5.2 % (1.7-12.7); Neutrophils % 82.5 % (38.7-73.9); Platelet Count 255 T/CUMM (130-400); Red Blood Count 4.34 MC/CUMM (3.8-5.5); Red Cell Distribution Width 14.4 % (9.3-17.3); White Blood Count 20.7 T/CUMM (4-12)
[2017-07-20 14:05] LABS: Calcium 8.4 MG/DL (8.5-10.1); Osmolality,Calculated 294.1 MOS/KG (273-304); Potassium 4.6 MMOL/L (3.5-5.1)
[2017-07-20 14:07] LABS: Band Neutrophils 1 % (0-10); Eosinophils 2 % (0-10); Lymphocytes 8 % (20-55); Platelet Estimate Adequate; Segmented Neutrophils 82 % (50-85); Total Cells Counted 100
[2017-07-20 17:32] LABS: Hematocrit 37.5 VOL% (42.0-52.0); Hemoglobin 12.6 GM/DL (14.0-18.0)
[2017-07-20] MEDS: hydrALAZINE 25 MG TABLET PO SCH (20:04)
[2017-07-20] MEDS: CARVEDILOL 25 MG TABLET PO SCH (20:04)
[2017-07-20] MEDS: ATORVASTATIN 10 MG TABLET PO SCH (20:05)
[2017-07-20] MEDS: FOLIC ACID 1 MG TABLET PO SCH (20:05)
[2017-07-20] MEDS: MEMANTINE 5 MG TABLET PO SCH (20:05)
[2017-07-20 23:35] LABS: Hematocrit 37.2 VOL% (42.0-52.0); Hemoglobin 12.4 GM/DL (14.0-18.0)
[2017-07-21] MEDS: PROPOFOL 1,000 MG/100 ML BOTTLE IV SCH ×3 (00:10→18:31)
[2017-07-21] MEDS: VASOPRESSIN 100 UNITS in SODIUM CHLORIDE 0.9% 95 ML IV SCH ×2 (00:11→23:25)
[2017-07-21] MEDS: PHENYLEPHRINE DRIP 40 MG/250 ML PREMIX IV SCH ×2 (00:11→23:25)
[2017-07-21] MEDS: fentaNYL INJ 1,250 MCG in SODIUM CHLORIDE 0.9% 225 ML IV SCH ×2 (00:11→23:25)
[2017-07-21] MEDS: INSULIN REGULAR 100 UNIT/ML SUBCUT SCH ×5 (00:12→23:25)
[2017-07-21] MEDS: ALBUTEROL/IPRATROPIUM 3 ML NEB RESP TX SCH ×4 (01:26→19:14)
[2017-07-21 04:12] LABS: ABG Base Excess -1.2 MMOL/L (-2.5-2.5); ABG HCO3 23.4 MMOL/L (20-26); ABG Oxygen Saturation 99.8 % (95-100); ABG PCO2 37.1 MM HG (35-48); ABG PH 7.403 (7.35-7.45); ABG TCO2 20.5 MMOL/L (23-27)
[2017-07-21 07:47] LABS: ABG Base Excess -1.2 MMOL/L (-2.5-2.5); ABG HCO3 23.4 MMOL/L (20-26); ABG Oxygen Saturation 99.2 % (95-100); ABG PCO2 36.9 MM HG (35-48); ABG PH 7.405 (7.35-7.45); ABG TCO2 20.5 MMOL/L (23-27); Allen Test Positive; Pt O2 Delivery Device Ventilator
[2017-07-21 08:09] LABS: Basophils % 0.3 % (0.0-0.8); Eosinophils # 0.2 10*3/uL (0.0-0.87); Eosinophils % 1.5 % (0.00-10.9); Hematocrit 36.6 VOL% (42.0-52.0); Hemoglobin 12.2 GM/DL (14.0-18.0); Immature Granulocytes % 2.4 %; Immature Granulocytes Absolute 0.36 #; Lymphocytes # 1.1 10*3/uL (1.4-4.0); Lymphocytes % 7.7 % (21.2-54.2); Mean Corpuscular HGB Conc 33.3 GM/DL (32-36); Mean Corpuscular Hemoglobin 30 PG (27-34); Mean Corpuscular Volume 90.4 FL (87-102); Mean Platelet Volume 12.8 FL (9.6-12.0); Monocytes % 6.5 % (1.7-12.7); Neutrophils # 12.1 10*3/uL (1.4-7.4); Neutrophils % 81.6 % (38.7-73.9); Platelet Count 235 T/CUMM (130-400); Red Blood Count 4.05 MC/CUMM (3.8-5.5); Red Cell Distribution Width 14.6 % (9.3-17.3); White Blood Count 14.8 T/CUMM (4-12)
[2017-07-21 08:48] LABS: Calcium 8.3 MG/DL (8.5-10.1); Magnesium 2.5 MG/DL (1.8-2.4); Osmolality,Calculated 301.7 MOS/KG (273-304); Potassium 4.3 MMOL/L (3.5-5.1); Prealbumin 12.3 MG/DL (20-40)
[2017-07-21] MEDS ORDERED: LEVOFLOXACIN INJ 250 MG in PREMIX 1 EACH IV ONE (09:00)
[2017-07-21] MEDS: PANTOPRAZOLE 40 MG VIAL IV SCH ×2 (09:17→21:23)
[2017-07-22] MEDS: ALBUTEROL/IPRATROPIUM 3 ML NEB RESP TX SCH ×4 (00:39→20:20)
[2017-07-22] MEDS: PROPOFOL 1,000 MG/100 ML BOTTLE IV SCH ×2 (00:44→16:27)
[2017-07-22 04:20] LABS: Allen Test Positive; Pt O2 Delivery Device Ventilator
[2017-07-22 04:28] LABS: ABG Base Excess -0.3 MMOL/L (-2.5-2.5); ABG HCO3 24.2 MMOL/L (20-26); ABG Oxygen Saturation 98.9 % (95-100); ABG PCO2 40.1 MM HG (35-48); ABG PH 7.393 (7.35-7.45); ABG TCO2 21.8 MMOL/L (23-27)
[2017-07-22 04:36] LABS: Basophils % 0.2 % (0.0-0.8); Eosinophils # 0.1 10*3/uL (0.0-0.87); Eosinophils % 1.2 % (0.00-10.9); Hematocrit 35.6 VOL% (42.0-52.0); Hemoglobin 11.6 GM/DL (14.0-18.0); Immature Granulocytes Absolute 0.24 #; Lymphocytes # 1.3 10*3/uL (1.4-4.0); Lymphocytes % 10.4 % (21.2-54.2); Mean Corpuscular HGB Conc 32.6 GM/DL (32-36); Mean Corpuscular Hemoglobin 30 PG (27-34); Mean Corpuscular Volume 90.8 FL (87-102); Mean Platelet Volume 12.9 FL (9.6-12.0); Monocytes # 1.1 10*3/uL (0.11-0.8); Monocytes % 9.3 % (1.7-12.7); Neutrophils # 9.4 10*3/uL (1.4-7.4); Neutrophils % 76.9 % (38.7-73.9); Platelet Count 218 T/CUMM (130-400); Red Blood Count 3.92 MC/CUMM (3.8-5.5); Red Cell Distribution Width 14.8 % (9.3-17.3); White Blood Count 12.2 T/CUMM (4-12)
[2017-07-22 05:06] LABS: Calcium 8.2 MG/DL (8.5-10.1); Magnesium 2.4 MG/DL (1.8-2.4); Osmolality,Calculated 305.4 MOS/KG (273-304); Potassium 4.3 MMOL/L (3.5-5.1)
[2017-07-22] MEDS: INSULIN REGULAR 100 UNIT/ML SUBCUT SCH ×3 (06:46→17:43)
[2017-07-22] MEDS: PANTOPRAZOLE 40 MG VIAL IV SCH ×2 (08:36→21:39)
[2017-07-23] MEDS: PROPOFOL 1,000 MG/100 ML BOTTLE IV SCH ×3 (00:06→17:30)
[2017-07-23] MEDS: PHENYLEPHRINE DRIP 40 MG/250 ML PREMIX IV SCH (00:07)
[2017-07-23] MEDS: INSULIN REGULAR 100 UNIT/ML SUBCUT SCH ×4 (00:07→19:11)
[2017-07-23] MEDS: ALBUTEROL/IPRATROPIUM 3 ML NEB RESP TX SCH ×4 (00:25→19:13)
[2017-07-23 04:21] LABS: ABG Base Excess 0.6 MMOL/L (-2.5-2.5); ABG HCO3 23.4 MMOL/L (20-26); ABG Oxygen Saturation 97.6 % (95-100); ABG PCO2 31.9 MM HG (35-48); ABG PH 7.484 (7.35-7.45); ABG PO2 99.9 MM HG (80-95); ABG TCO2 24.4 MMOL/L (23-27); Allen Test Positive; Pt O2 Delivery Device Ventilator
[2017-07-23 04:38] LABS: Basophils % 0.2 % (0.0-0.8); Eosinophils # 0.1 10*3/uL (0.0-0.87); Eosinophils % 0.5 % (0.00-10.9); Hematocrit 34.1 VOL% (42.0-52.0); Hemoglobin 11.3 GM/DL (14.0-18.0); Immature Granulocytes % 1.9 %; Immature Granulocytes Absolute 0.21 #; Lymphocytes # 1.3 10*3/uL (1.4-4.0); Lymphocytes % 11.8 % (21.2-54.2); Mean Corpuscular HGB Conc 33.1 GM/DL (32-36); Mean Corpuscular Hemoglobin 30 PG (27-34); Mean Platelet Volume 12.9 FL (9.6-12.0); Monocytes % 8.4 % (1.7-12.7); Neutrophils # 8.7 10*3/uL (1.4-7.4); Neutrophils % 77.2 % (38.7-73.9); Platelet Count 211 T/CUMM (130-400); Red Blood Count 3.83 MC/CUMM (3.8-5.5); Red Cell Distribution Width 15.4 % (9.3-17.3); White Blood Count 11.3 T/CUMM (4-12)
[2017-07-23 05:04] LABS: Calcium 8.1 MG/DL (8.5-10.1); Magnesium 2.5 MG/DL (1.8-2.4); Osmolality,Calculated 309.3 MOS/KG (273-304); Potassium 4.3 MMOL/L (3.5-5.1)
[2017-07-23 05:18] LABS: Band Neutrophils 8 % (0-10); Hypochromasia Slight; Lymphocytes 11 % (20-55); Microcytosis Slight; Segmented Neutrophils 70 % (50-85); Total Cells Counted 100
[2017-07-23 05:19] LABS: Platelet Estimate Normal
[2017-07-23 09:48] LABS: ABG Base Excess 0.3 MMOL/L (-2.5-2.5); ABG HCO3 24.7 MMOL/L (20-26); ABG Oxygen Saturation 99.2 % (95-100); ABG PCO2 38.2 MM HG (35-48); ABG PH 7.417 (7.35-7.45); ABG TCO2 21.8 MMOL/L (23-27)
[2017-07-23] MEDS: PANTOPRAZOLE 40 MG VIAL IV SCH ×2 (10:11→21:30)
[2017-07-24] MEDS: ALBUTEROL/IPRATROPIUM 3 ML NEB RESP TX SCH ×3 (00:14→13:48)
[2017-07-24] MEDS: PHENYLEPHRINE DRIP 40 MG/250 ML PREMIX IV SCH (01:43)
[2017-07-24 02:54] LABS: ABG HCO3 26.2 MMOL/L (20-26); ABG Oxygen Saturation 99.6 % (95-100); ABG PCO2 33.2 MM HG (35-48); ABG PH 7.484 (7.35-7.45); Allen Test Positive; Pt O2 Delivery Device Ventilator
[2017-07-24] MEDS: PROPOFOL 1,000 MG/100 ML BOTTLE IV SCH (05:01)
[2017-07-24 06:39] LABS: Calcium 8.4 MG/DL (8.5-10.1); Magnesium 2.6 MG/DL (1.8-2.4); Osmolality,Calculated 307.4 MOS/KG (273-304); Potassium 4.5 MMOL/L (3.5-5.1)
[2017-07-24] MEDS: INSULIN REGULAR 100 UNIT/ML SUBCUT SCH ×3 (06:46→12:25)
[2017-07-24 07:00] LABS: Basophils # 0.1 10*3/uL (0.0-0.2); Basophils % 0.4 % (0.0-0.8); Eosinophils % 0.3 % (0.00-10.9); Hematocrit 39.4 VOL% (42.0-52.0); Hemoglobin 12.1 GM/DL (14.0-18.0); Immature Granulocytes % 2.2 %; Immature Granulocytes Absolute 0.31 #; Lymphocytes # 2.3 10*3/uL (1.4-4.0); Lymphocytes % 16.3 % (21.2-54.2); Mean Corpuscular HGB Conc 30.7 GM/DL (32-36); Mean Corpuscular Hemoglobin 29 PG (27-34); Mean Corpuscular Volume 95.4 FL (87-102); Monocytes # 1.1 10*3/uL (0.11-0.8); Monocytes % 8.2 % (1.7-12.7); Neutrophils # 10.2 10*3/uL (1.4-7.4); Neutrophils % 72.6 % (38.7-73.9); Platelet Count 177 T/CUMM (130-400); Red Blood Count 4.13 MC/CUMM (3.8-5.5); Red Cell Distribution Width 15.5 % (9.3-17.3)
[2017-07-24] MEDS ORDERED: fentaNYL INJ 1,250 MCG in SODIUM CHLORIDE 0.9% 225 ML IV SCH (07:00)
[2017-07-24] MEDS: PANTOPRAZOLE 40 MG VIAL IV SCH (12:25)
[2017-07-24 14:42] VITALS: BP 148/60
== END 2017-07-24 15:30 | DRG 870 ==
LOC: EDBD → EDUNIT# → N.ED 12:36 → SUATTDRO 19:27 → N.EDINP 20:08 → N.ICU 20:16 → N.TELEN 07-09 20:33 → N.CVR 07-19 22:08 → N.ICU 07-21 07:47
PROVIDERS: ADMIT Pediatrics; ATTEND Internal Medicine
PROC: EGDWPEG (ICD-10-PCS; 2017-07-17 08:35)